=== PATIENT | female | born 1955 | race Caucasian/White ===

== ENCOUNTER 2019-03-30 14:25 | Outpatient (CLI) | payer MEDICARE | END 2019-03-30 23:59 | disposition home or self-care (01) | LOC: STAR 14:25 → MERGE 15:00 → STAR 23:59 | PROVIDERS: ATTEND Orthopaedic Surgery Orthopaedic Surgery of the Spine | DX: Z01.818 Encounter for other preprocedural examination (principal); M47.892 Other spondylosis, cervical region | CPT/HCPCS: 36415; 71046; 80053; 80074; 81001; 85025; 85610; 85651; 85730; 87086; 87806; 93005; G0475 ==